=== PATIENT | female | born 1945 | race Caucasian/White ===

== ENCOUNTER 2017-08-10 15:51 | Emergency (ER) | payer MEDICARE, SELFPAY ==
[2017-08-10 16:05] VITALS: BP 159/83; PULSE 72; RESP 18; TEMP 36.9; O2SAT 97; BMI 31.3
[2017-08-10 17:02] LABS: Add Manual Diff / Slide Review NO; Basophils Percent Auto 0.5 % (0-2); Eosinophils Percent Auto 1.7 % (2-4); Hematocrit 41.9 % (36-46); Hemoglobin 14.3 g/dL (12.0-16.0); Lymphocytes Percent Auto 17.2 % (25-40); Mean Corpuscular HGB Conc 34.2 % (30-36); Mean Corpuscular Hemoglobin 31.2 PG (26-34); Mean Corpuscular Volume 91.3 fL (80-100); Monocytes Percent Auto 6.6 % (3-14); Neutrophils Absolute Auto 5500 /uL (3000-5900); Platelet Count 226 X10^3/uL (150-400); Red Blood Cell Count 4.59 X10^6/uL (4.0-5.2); Red Cell Distribution Width 13.4 % (11.6-14.8); White Blood Cell Count 7.4 X10^3/uL (4.5-11.0)
[2017-08-10 17:08] LABS: Prothrombin Time 11.1 SECONDS (10.1-12.7)
[2017-08-10 17:10] LABS: PTT Partial Thromboplastin Tim 35 SECONDS (26.4-36.2)
[2017-08-10 17:13] LABS: Alanine Aminotransferase 35 IU/L (9-52); Albumin 4.1 g/dL (3.5-5.0); Albumin Globulin Ratio 1.3 (1.0-2.8); Alkaline Phosphatase 103 U/L (38-126); Aspartate Aminotransferase 32 IU/L (14-36); BUN Creatinine Ratio 18.6 (6-22); Bilirubin Total 0.9 mg/dL (0.2-1.3); Blood Urea Nitrogen 13 mg/dL (7-17); Calcium 9.4 mg/dL (8.4-10.2); Carbon Dioxide 26 mmol/L (22-32); Chloride 101 mmol/L (98-107); Estimated Glomerular Filt Rate > 60.0 mL/min (>60); Globulin 3.1 g/dL (1.7-4.1); Glucose 118 mg/dL (80-110); HEMOLYSIS < 15 (0-50); Lipase 48 U/L (23-300); Potassium 3.8 mmol/L (3.4-5.1); Sodium 138 mmol/L (137-145); Total Protein 7.2 g/dL (6.3-8.2)
[2017-08-10 18:38] LABS: Creatine Kinase 67 U/L (30-135)
[2017-08-10 18:49] LABS: Erythrocyte Sedimentation Rate 5 MM/HR (0-20)
[2017-08-10 18:56] LABS: Free T4, Direct Thyroxine 1.43 ng/dL (0.78-2.19)
[2017-08-10] MEDS: IBUPROFEN 400 MG TABLET 800 MG PO (18:59)
[2017-08-10 19:10] LABS: Thyroid Stimulating Hormone 0.73 uIU/mL (0.47-4.68)
[2017-08-10 19:45] LABS: Bacteria Urine None Seen; RBC Urine None Seen (0-5/HPF)
[2017-08-10 19:46] LABS: Appearance Urine UA CLEAR; Bilirubin Urine UA NEGATIVE (NEGATIVE); Color Urine UA YELLOW; Glucose Urine UA NEGATIVE (Normal); Ketones Urine UA NEGATIVE (NEGATIVE); Leukocyte Esterase Urine UA NEGATIVE (NEGATIVE); Nitrite Urine UA Negative (Negative); Occult Blood Urine UA NEGATIVE (Negative); Protein Urine UA NEGATIVE (Negative); Specific Gravity Urine UA <=1.005 (1.000-1.035); Urobilinogen Urine UA 0.2 E.U./dL (0.2)
[2017-08-10 19:52] LABS: Culture Indicated Urine Cult Not Indicated; Squamous Epithelial Cell Urine 0-1 /HPF; WBC Urine 0-1/HPF (0-5/HPF)
--- NOTE | 2017-08-10 20:02 | ED.EXTPRO ---
HPI - Extremity Problem General Chief complaint: Extremity Problem,Nontraumatic Stated complaint: ACHE EVERYWHERE Time Seen by Provider: 08/10/17 18:06 History of Present Illness HPI Narrative: HPI 71 y/o female with bilateral knee replacements and arthritis presents for evaluation of diffuse musculoskeletal and joint aching that has been present for 1/2 day. Patient reports symptoms feels similar to aching that she feels when a weather system is approaching however they are more severe in nature. Patient denies fevers, chills, dysuria, urinary frequency, cough, rashes or falls. M/S/F/SocHx notable for: please see HPI; remainder reviewed with patient and in chart. ROS: Negative constitutional, eye, cardiovascular, pulmonary, GI, , MSK, skin, neurologic, psychiatric, endocrine unless noted in the HPI. Exam Gen: Pleasant, non-toxic appearing, resting comfortably. HEENT: NC, AT, PEERL, EOMI. Resp: Clear to auscultation bilaterally, normal work of breathing, no accessory muscle usage. Card: Regular rate and rhythm with no murmurs, rubs, or gallops, extremities warm and well perfused. GI: Non-tender to palpation throughout all quadrants, no focal tenderness at McBurney's point, negative Miles's sign, non-distended, no rebound or guarding. : No suprapubic tenderness to palpation. MSK: No visible deformities, strength and tone without visually appreciable deficit. Bilateral knees visually normal without warmth, swelling, tenderness, remainder of appendicular skeleton visually normal without appreciable abnormalities. Skin: Normal color with no visible lesions. Neuro: AO x 3, no facial asymmetry, vision and hearing WNL. Psych: Mood and affect appropriate. Labs / Imaging: WBC 7.4, Hb 14.3, INR 1.0, Na 138, K 3.8, ESR 5, TSH 0.73, free T4 1.43, CK 67 UA - negative leukocyte esterase, negative nitrates, 0-1 squamous epithelial cells, no bacteria. MDM Previous chart, nursing note, labs, imaging, and vitals reviewed. A: 71 y/o female with bilateral knee replacements and arthritis presents for evaluation of diffuse musculoskeletal and joint aching that has been present for 1/2 day. DDx: polymyalgia rheumatica, electrolyte abnormalities, indolent / occult infection, polymyositis, arthritis, hypothyroidism Evaluation: strongly doubt polymyalgia rheumatica given a normal ESR. No significant electrolyte abnormalities. History, exam, and urinalysis without evidence of indolent or occult infection. Doubt polymyositis given a normal CK and otherwise normal laboratory studies. No evidence of hyperthyroidism. Patient given ibuprofen and discharged with PCP follow-up recommended for further evaluation and care. Impression: myalgias (please reference below for remainder of encounter information) Patient was notified of their elevated blood pressure and recommended to follow up with their primary care physician. As the patient is without evidence of acute end organ dysfunction no further emergent evaluation is indicated as per the 2013 [facility] clinical policy. Related Data Home Medications Medication Instructions Recorded Confirmed CA PANTOTHENATE/FOLIC ACID/VIT 1 tab PO QDAY #0 07/14/12 07/12/17 (MULTIVITAMIN) CHOLECALCIFEROL (VITAMIN D3) 1,000 units PO QDAY #0 07/14/12 07/12/17 (VITAMIN D3) Fish Oil 1,000 mg PO QDAY #0 07/14/12 07/12/17 Flaxseed Oil 1,000 mg PO Q DAY #0 07/14/12 07/12/17 Grape Seed Extract (#ACTIVIN) 50 mg PO Q DAY #0 07/14/12 07/12/17 Vitamin E (VITAMIN E) 400 units PO QDAY #0 07/14/12 07/12/17 biotin 5,000 mcg PO QDAY #0 10/25/16 07/12/17 pantoprazole 40 mg tablet,delayed 40 mg PO DAILY 07/12/17 07/12/17 release Previous Rx's Medication Instructions Recorded levothyroxine [Synthroid] 75 mcg PO Q DAY #90 04/10/17 zolpidem 5 mg tablet 5 mg PO HSP PRN #30 tab 07/12/17 Allergies Allergy/AdvReac Type Severity Reaction Status Date / Time shellfish derived Allergy Severe NAUSEA-CLAM Verified 08/10/17 16:10 [SHELLFISH DERIVED] S nickel [NICKEL] Allergy Mild RASH Verified 08/10/17 16:10 sulfamethoxazole Allergy Mild DRY MOUTH Verified 08/10/17 16:10 [SULFAMETHOXAZOLE] trimethoprim [TRIMETHOPRIM] Allergy Mild DRY MOUTH Verified 08/10/17 16:10 PFSH Medical History Rosacea (Chronic 07/17/12) Osteoarthritis (arthritis due to wear and tear of joints) (Chronic 07/17/12) Obstructive sleep apnea syndrome (Chronic 07/17/12) Hyperlipidemia (Chronic 07/28/14) Gastroesophageal reflux disease (Chronic 07/04/16) Class 1 obesity (Chronic 07/04/16) Acquired hypothyroidism (Chronic 07/04/16) Surgical History History of carpal tunnel repair History of carpal tunnel repair History of knee replacement Status post biopsy (10/06/14) Status post thoracotomy Family History Grandfather Heart disease Mother Hypothyroid Social History Smoking Status: Former smoker Exam Initial Vital Signs Initial Vital Signs: Vital Signs Temperature 98.5 F 08/10/17 16:05 Pulse Rate 72 08/10/17 16:05 Respiratory Rate 18 08/10/17 16:05 Blood Pressure 159/83 H 08/10/17 16:05 Pulse Oximetry 97 08/10/17 16:05 Course Orders Ordered: ED Orders 08/10/17 16:51 Complete Blood Count AUTO DIFF Stat Comprehensive Metabolic Panel Stat Creatine Kinase Stat Erythrocyte Sedimentation Rate Stat Free T4 Free Thyroxine Stat Lipase Stat Partial Thromboplastin Time Stat Prothrombin Time INR Stat Thyroid Stimulating Hormone Stat 08/10/17 19:07 Urinalysis and Microscopic Stat Discontinued Medications Ibuprofen (Advil) 800 mg PO NOW ONE Stop: 08/10/17 18:26 Last Admin: 08/10/17 18:59 Dose: 800 mg Vital Signs - 8 hr 08/10/17 16:05 Temperature 98.5 F Pulse Rate 72 Respiratory Rate 18 Blood Pressure 159/83 H Pulse Oximetry 97 MDM - Extremity (Nontraumatic) Lab Data Result diagrams: 08/10/17 16:51 08/10/17 16:51 Lab Results 08/10/17 08/10/17 08/10/17 Range/Units 16:51 16:51 16:51 WBC 7.4 (4.5-11.0) X10^3/uL RBC 4.59 (4.0-5.2) X10^6/uL Hgb 14.3 (12.0-16.0) g/dL Hct 41.9 (36-46) % MCV 91.3 (80-100) fL MCH 31.2 (26-34) PG MCHC 34.2 (30-36) % RDW 13.4 (11.6-14.8) % Plt Count 226 (150-400) X10^3/uL Neut % (Auto) 74.0 (50-75) % Lymph % (Auto) 17.2 L (25-40) % Forrest % (Auto) 6.6 (3-14) % Eos % (Auto) 1.7 L (2-4) % Baso % (Auto) 0.5 (0-2) % Neut # (Auto) 5500 (9311-8779) /uL ESR (0-20) MM/HR PT 11.1 (10.1-12.7) SECONDS INR 1.0 (0.9-1.3) APTT 35 (26.4-36.2) SECONDS Sodium 138 (137-145) mmol/L Potassium 3.8 (3.4-5.1) mmol/L Chloride 101 (98-107) mmol/L Carbon Dioxide 26 (22-32) mmol/L BUN 13 (7-17) mg/dL Creatinine 0.70 (0.52-1.04) mg/dL Estimated GFR > 60.0 (>60) mL/min BUN/Creatinine Ratio 18.6 (6-22) Glucose 118 H (80-110) mg/dL Calcium 9.4 (8.4-10.2) mg/dL Total Bilirubin 0.9 (0.2-1.3) mg/dL AST 32 (14-36) IU/L ALT 35 (9-52) IU/L Alkaline Phosphatase 103 (38-126) U/L Total Creatine Kinase (30-135) U/L Total Protein 7.2 (6.3-8.2) g/dL Albumin 4.1 (3.5-5.0) g/dL Globulin 3.1 (1.7-4.1) g/dL Albumin/Globulin Ratio 1.3 (1.0-2.8) Lipase 48 (23-300) U/L TSH (0.47-4.68) uIU/mL Free T4 (0.78-2.19) ng/dL Urine Color Urine Appearance Urine pH (4.5-8.0) Ur Specific [place] (1.000-1.035) Urine Protein (Negative) Urine Glucose (UA) (Normal) g/dL Urine Ketones (NEGATIVE) Urine Occult Blood (Negative) Urine Nitrate (Negative) Urine Bilirubin (NEGATIVE) Urine Urobilinogen (0.2) E.U./dL Ur Leukocyte Esterase (NEGATIVE) Urine RBC (0-5/HPF) Urine WBC (0-5/HPF) Ur Squamous Epith Cells Urine Bacteria (None) Ur Culture Indicated? Micro UA Comment 08/10/17 08/10/17 08/10/17 Range/Units 16:51 16:51 16:51 WBC (4.5-11.0) X10^3/uL RBC (4.0-5.2) X10^6/uL Hgb (12.0-16.0) g/dL Hct (36-46) % MCV (80-100) fL MCH (26-34) PG MCHC (30-36) % RDW (11.6-14.8) % Plt Count (150-400) X10^3/uL Neut % (Auto) (50-75) % Lymph % (Auto) (25-40) % Forrest % (Auto) (3-14) % Eos % (Auto) (2-4) % Baso % (Auto) (0-2) % Neut # (Auto) (6828-0420) /uL ESR 5 (0-20) MM/HR PT (10.1-12.7) SECONDS INR (0.9-1.3) APTT (26.4-36.2) SECONDS Sodium (137-145) mmol/L Potassium (3.4-5.1) mmol/L Chloride (98-107) mmol/L Carbon Dioxide (22-32) mmol/L BUN (7-17) mg/dL Creatinine (0.52-1.04) mg/dL Estimated GFR (>60) mL/min BUN/Creatinine Ratio (6-22) Glucose (80-110) mg/dL Calcium (8.4-10.2) mg/dL Total Bilirubin (0.2-1.3) mg/dL AST (14-36) IU/L ALT (9-52) IU/L Alkaline Phosphatase (38-126) U/L Total Creatine Kinase 67 (30-135) U/L Total Protein (6.3-8.2) g/dL Albumin (3.5-5.0) g/dL Globulin (1.7-4.1) g/dL Albumin/Globulin Ratio (1.0-2.8) Lipase (23-300) U/L TSH 0.73 (0.47-4.68) uIU/mL Free T4 1.43 (0.78-2.19) ng/dL Urine Color Urine Appearance Urine pH (4.5-8.0) Ur Specific [place] (1.000-1.035) Urine Protein (Negative) Urine Glucose (UA) (Normal) g/dL Urine Ketones (NEGATIVE) Urine Occult Blood (Negative) Urine Nitrate (Negative) Urine Bilirubin (NEGATIVE) Urine Urobilinogen (0.2) E.U./dL Ur Leukocyte Esterase (NEGATIVE) Urine RBC (0-5/HPF) Urine WBC (0-5/HPF) Ur Squamous Epith Cells Urine Bacteria (None) Ur Culture Indicated? Micro UA Comment 08/10/17 Range/Units 19:07 WBC (4.5-11.0) X10^3/uL RBC (4.0-5.2) X10^6/uL Hgb (12.0-16.0) g/dL Hct (36-46) % MCV (80-100) fL MCH (26-34) PG MCHC (30-36) % RDW (11.6-14.8) % Plt Count (150-400) X10^3/uL Neut % (Auto) (50-75) % Lymph % (Auto) (25-40) % Forrest % (Auto) (3-14) % Eos % (Auto) (2-4) % Baso % (Auto) (0-2) % Neut # (Auto) (8946-2390) /uL ESR (0-20) MM/HR PT (10.1-12.7) SECONDS INR (0.9-1.3) APTT (26.4-36.2) SECONDS Sodium (137-145) mmol/L Potassium (3.4-5.1) mmol/L Chloride (98-107) mmol/L Carbon Dioxide (22-32) mmol/L BUN (7-17) mg/dL Creatinine (0.52-1.04) mg/dL Estimated GFR (>60) mL/min BUN/Creatinine Ratio (6-22) Glucose (80-110) mg/dL Calcium (8.4-10.2) mg/dL Total Bilirubin (0.2-1.3) mg/dL AST (14-36) IU/L ALT (9-52) IU/L Alkaline Phosphatase (38-126) U/L Total Creatine Kinase (30-135) U/L Total Protein (6.3-8.2) g/dL Albumin (3.5-5.0) g/dL Globulin (1.7-4.1) g/dL Albumin/Globulin Ratio (1.0-2.8) Lipase (23-300) U/L TSH (0.47-4.68) uIU/mL Free T4 (0.78-2.19) ng/dL Urine Color Yellow Urine Appearance Clear Urine pH 7.0 (4.5-8.0) Ur Specific [place] <=1.005 (1.000-1.035) Urine Protein Negative (Negative) Urine Glucose (UA) Negative (Normal) g/dL Urine Ketones Negative (NEGATIVE) Urine Occult Blood Negative (Negative) Urine Nitrate Negative (Negative) Urine Bilirubin Negative (NEGATIVE) Urine Urobilinogen 0.2 (0.2) E.U./dL Ur Leukocyte Esterase Negative (NEGATIVE) Urine RBC None seen (0-5/HPF) Urine WBC 0-1/hpf (0-5/HPF) Ur Squamous Epith Cells 0-1 /hpf Urine Bacteria None seen (None) Ur Culture Indicated? Cult not indicated Micro UA Comment Not Reportable Discharge Plan Departure Prescriptions: No Action CA PANTOTHENATE/FOLIC ACID/VIT (MULTIVITAMIN) 1 tab PO QDAY Qty: 0 RF: 0 Fish Oil 1,000 mg PO QDAY Qty: 0 RF: 0 CHOLECALCIFEROL (VITAMIN D3) (VITAMIN D3) 1,000 units PO QDAY Qty: 0 RF: 0 Flaxseed Oil 1,000 mg PO Q DAY Qty: 0 RF: 0 Grape Seed Extract (#ACTIVIN) 50 mg PO Q DAY Qty: 0 RF: 0 Vitamin E (VITAMIN E) 400 units PO QDAY Qty: 0 RF: 0 biotin 2,500 MCG capsule 5,000 mcg PO QDAY Qty: 0 RF: 0 levothyroxine [Synthroid] 75 MCG tablet 75 mcg PO Q DAY Qty: 90 RF: 3 zolpidem 5 mg tablet 5 mg PO HSP PRN (Reason: insomnia) Qty: 30 RF: 3 pantoprazole 40 mg tablet,delayed release (DR/EC) 40 mg PO DAILY RF: 0
[2017-08-10 20:13] VITALS: BP 149/79; PULSE 69; TEMP 36.2; O2SAT 100
== END 2017-08-10 20:36 | disposition home or self-care (01) ==
PROVIDERS: Nurse Practitioner Family; Emergency Provider Emergency Medicine; Family Provider Family Medicine; PCP Family Medicine
DX: M79.1 Myalgia (principal)
CPT/HCPCS: 80053; 81001; 82550; 83690; 84439; 84443; 85025; 85610; 85651; 85730; 99282; 99283

== ENCOUNTER → 2017-08-15 13:07 | Outpatient (CLI) | payer MEDICARE, SELFPAY | PROVIDERS: Family Provider Family Medicine; PCP Family Medicine; Visit Provider Family Medicine | DX: M85.852 Other specified disorders of bone density and structure, left thigh (principal); Z78.0 Asymptomatic menopausal state; Z82.62 Family history of osteoporosis | CPT/HCPCS: 77080 ==

== ENCOUNTER → 2017-10-23 10:12 | Outpatient (CLI) | payer MEDICARE, SELFPAY ==
--- NOTE | 2017-10-23 10:16 | DI.MG.S_ITS ---
BILATERAL DIGITAL SCREENING MAMMOGRAM 3D/2D WITH CAD: 10/23/2017 CLINICAL: Routine screening. Comparison is made to exams dated: 10/08/2016 mammogram, 10/07/2015 mammogram, and 10/05/2014 mammogram - [facility]. There are scattered fibroglandular elements in both breasts. Current study was also evaluated with a Computer Aided Detection (CAD) system. No significant masses, calcifications, or other findings are seen in either breast. There has been no significant interval change. IMPRESSION: NEGATIVE There is no mammographic evidence of malignancy. A 1 year screening mammogram is recommended. This exam was interpreted at Station ID: [id number]. NOTE: For mammograms, a report in lay terms will be sent to the patient. Approximately 15% of breast malignancies will not be visualized mammographically. In the management of a palpable breast mass, a negative mammogram must not discourage biopsy of a clinically suspicious lesion. Electronically Signed By: Severo [email or web address]/nahomy:10/23/2017 21:44:46 letter sent: Normal Exam ACR BI-RADS Category 1: Negative 3341F
== END ==
PROVIDERS: Family Provider Family Medicine; PCP Family Medicine; Visit Provider Family Medicine
DX: Z12.31 Encounter for screening mammogram for malignant neoplasm of breast (principal)
CPT/HCPCS: 77063; 77067

== ENCOUNTER → 2017-12-03 08:14 | Outpatient (CLI) | payer MEDICARE, SELFPAY ==
[2017-12-03 10:38] LABS: Thyroid Stimulating Hormone 1.84 uIU/mL (0.47-4.68)
[2017-12-03 19:47] LABS: Free T3, Triiodothyronine Free 3.48 pg/mL (2.77-5.27); Free T4, Direct Thyroxine 1.75 ng/dL (0.78-2.19)
== END ==
PROVIDERS: PCP Family Medicine; Visit Provider Family Medicine
DX: E03.9 Hypothyroidism, unspecified (principal)
CPT/HCPCS: 36415; 84439; 84443; 84481

== ENCOUNTER → 2018-07-11 08:06 | Outpatient (CLI) | payer MEDICARE, SELFPAY ==
[2018-07-11 08:59] LABS: Add Manual Diff / Slide Review NO; Basophils Absolute Auto 0 /uL (0-100); Basophils Percent Auto 0.7 % (0-2); Eosinophils Absolute Auto 200 /uL (0-450); Eosinophils Percent Auto 4.1 % (2-4); Hematocrit 40.8 % (36-46); Hemoglobin 13.9 g/dL (12.0-16.0); Lymphocytes Absolute Auto 1700 /uL (1100-4500); Lymphocytes Percent Auto 31.6 % (25-40); Mean Corpuscular HGB Conc 34.1 % (30-36); Mean Corpuscular Hemoglobin 31.1 PG (26-34); Mean Corpuscular Volume 91.2 fL (80-100); Monocytes Absolute Auto 500 /uL (0-900); Monocytes Percent Auto 8.5 % (3-14); Neutrophils Absolute Auto 2900 /uL (1500-7000); Neutrophils Percent Auto 55.1 % (50-75); Platelet Count 248 X10^3/uL (150-400); Red Blood Cell Count 4.47 X10^6/uL (4.0-5.2); Red Cell Distribution Width 13.4 % (11.6-14.8); White Blood Cell Count 5.3 X10^3/uL (4.5-11.0)
[2018-07-11 09:38] LABS: Alanine Aminotransferase 21 IU/L (9-52); Albumin 3.9 g/dL (3.5-5.0); Albumin Globulin Ratio 1.4 (1.0-2.8); Alkaline Phosphatase 102 U/L (38-126); Aspartate Aminotransferase 27 IU/L (14-36); BUN Creatinine Ratio 21.3 (6-22); Bilirubin Total 0.7 mg/dL (0.2-1.3); Blood Urea Nitrogen 17 mg/dL (7-17); Calcium 9.7 mg/dL (8.4-10.2); Carbon Dioxide 25 mmol/L (22-32); Chloride 102 mmol/L (98-107); Cholesterol 239 mg/dL (140-199); Estimated Glomerular Filt Rate > 60.0 mL/min (>60); Globulin 2.7 g/dL (1.7-4.1); Glucose 113 mg/dL (80-110); HDL Cholesterol 36 mg/dL (40-60); HEMOLYSIS < 15 (0-50); LDL Cholesterol Calculated 166 mg/dL (<100); Potassium 4.4 mmol/L (3.4-5.1); Sodium 136 mmol/L (137-145); Total Protein 6.6 g/dL (6.3-8.2); Triglycerides 185 mg/dL (35-150)
[2018-07-11 09:54] LABS: Free T4, Direct Thyroxine 1.47 ng/dL (0.78-2.19)
== END ==
PROVIDERS: PCP Family Medicine; Visit Provider Family Medicine
DX: E03.9 Hypothyroidism, unspecified (principal); E66.9 Obesity, unspecified; E78.5 Hyperlipidemia, unspecified; Z00.00 Encounter for general adult medical examination without abnormal findings
CPT/HCPCS: 36415; 80053; 80061; 84439; 85025

== ENCOUNTER → 2018-10-24 10:57 | Outpatient (CLI) | payer MEDICARE, SELFPAY ==
--- NOTE | 2018-10-24 | DI.MG.S_ITS ---
BILATERAL DIGITAL SCREENING MAMMOGRAM 3D/2D WITH CAD: 10/24/2018 CLINICAL: Routine screening. Comparison is made to exams dated: 10/23/2017 mammogram, 10/08/2016 mammogram, 10/07/2015 mammogram, 10/05/2014 mammogram, and 08/20/2013 mammogram - [facility]. There are scattered fibroglandular elements in both breasts. Current study was also evaluated with a Computer Aided Detection (CAD) system. No significant masses, calcifications, or other findings are seen in either breast. There has been no significant interval change. IMPRESSION: NEGATIVE There is no mammographic evidence of malignancy. A 1 year screening mammogram is recommended. This exam was interpreted at Station ID: [id number]. NOTE: For mammograms, a report in lay terms will be sent to the patient. Approximately 15% of breast malignancies will not be visualized mammographically. In the management of a palpable breast mass, a negative mammogram must not discourage biopsy of a clinically suspicious lesion. Electronically Signed By: Tommy [email or web address]/nahomy:10/24/2018 12:31:01 letter sent: Normal Exam ACR BI-RADS Category 1: Negative 3341F
== END ==
PROVIDERS: PCP Family Medicine; Visit Provider Family Medicine
DX: Z12.31 Encounter for screening mammogram for malignant neoplasm of breast (principal)
CPT/HCPCS: 77063; 77067

== ENCOUNTER → 2019-08-27 08:04 | Outpatient (CLI) | payer MEDICARE, SELFPAY ==
[2019-08-27 09:59] LABS: Alanine Aminotransferase 22 IU/L (<35); Albumin Globulin Ratio 1.4 (1.0-2.8); Alkaline Phosphatase 97 U/L (38-126); Aspartate Aminotransferase 35 IU/L (14-36); BUN Creatinine Ratio 19.4 (6-22); Bilirubin Total 0.6 mg/dL (0.2-1.3); Blood Urea Nitrogen 14 mg/dL (7-17); Calcium 9.6 mg/dL (8.4-10.2); Carbon Dioxide 28 mmol/L (22-32); Chloride 104 mmol/L (98-107); Cholesterol 208 mg/dL (140-199); Estimated Glomerular Filt Rate > 60.0 mL/min (>60); Globulin 2.8 g/dL (1.7-4.1); Glucose 112 mg/dL (80-110); HDL Cholesterol 34 mg/dL (40-60); HEMOLYSIS < 15 (0-50); LDL Cholesterol Calculated 139 mg/dL (<100); Sodium 140 mmol/L (137-145); Total Protein 6.8 g/dL (6.3-8.2); Triglycerides 175 mg/dL (35-150)
[2019-08-27 10:41] LABS: TSH w/ Reflex to FT4 2.18 uIU/mL (0.47-4.68)
== END ==
PROVIDERS: PCP Family Medicine; Referring Provider Family Medicine; Visit Provider Family Medicine
DX: E03.9 Hypothyroidism, unspecified (principal); E66.9 Obesity, unspecified; E78.5 Hyperlipidemia, unspecified
CPT/HCPCS: 36415; 80053; 80061; 84443

== ENCOUNTER → 2019-09-01 09:40 | Outpatient (CLI) | payer MEDICARE, SELFPAY ==
[2019-09-01 10:49] LABS: BUN Creatinine Ratio 21.8 (6-22); Blood Urea Nitrogen 17 mg/dL (7-17); Carbon Dioxide 30 mmol/L (22-32); Chloride 104 mmol/L (98-107); Estimated Glomerular Filt Rate > 60.0 mL/min (>60); Glucose 101 mg/dL (80-110); HEMOLYSIS < 15 (0-50); Potassium 4.3 mmol/L (3.4-5.1); Sodium 138 mmol/L (137-145)
[2019-09-02 06:36] LABS: Thyroid Peroxidase Antibodies 49 IU/mL (0-34)
[2019-09-02 20:07] LABS: Anti Thyroglobulin Antibody <1.0 IU/mL (0.0-0.9)
== END ==
PROVIDERS: PCP Family Medicine; Referring Provider Family Medicine; Visit Provider Family Medicine
DX: E03.9 Hypothyroidism, unspecified (principal); E66.9 Obesity, unspecified; R73.01 Impaired fasting glucose
CPT/HCPCS: 36415; 80048; 86376; 86800

== ENCOUNTER 2019-09-06 21:26 | Emergency (ER) | payer MEDICARE, SELFPAY ==
[2019-09-06] VITALS (10 sets, daily range): BP systolic 156–190; BP diastolic 76–98; PULSE 56–72; RESP 13–27; O2SAT 91–99
--- NOTE | 2019-09-06 21:37 | DI.RAD.S_ITS ---
PROCEDURE: XR WRIST LT 2V INDICATIONS: fall TECHNIQUE: 2 views of the wrist were acquired. COMPARISON: [facility], , WRIST MINIMUM 3 VIEWS RIGHT, 07/22/2013, 10:25. FINDINGS: Bones: There is a comminuted, intra-articular and mildly displaced fracture of the distal radius. Positive ulnar variance is present. Severe 1st [facility] degenerative narrowing. Scaphoid view: Not obtained. Soft tissues: No suspicious soft tissue calcifications. IMPRESSION: Comminuted, intra-articular displaced fracture of the distal radius. Dictated by: Blanca Jimenez M.D. on 09/06/2019 at 22:12 Approved by: Blanca Jimenez M.D. on 09/06/2019 at 22:12
--- NOTE | 2019-09-06 21:55 | ED_ITS ---
HPI - General Adult General Chief complaint: Extremity Injury, Upper Stated complaint: fall, states left arm is fractured Time Seen by Provider: 09/06/19 21:29 Source: patient and family Mode of arrival: Ambulatory Limitations: no limitations History of Present Illness HPI narrative: 74-year-old female here for evaluation of a left wrist injury. Patient states that she was standing on a child stable in her backyard talking with her neighbor through the friends when she slipped off the table and landed on her left wrist. Has an obvious deformity to her left wrist. She reports no other injury from the fall. Did not hit her head. No loss of consciousness. Patient is not on anticoagulation. No interventions prior to arrival Related Data Home Medications Medication Instructions Recorded Confirmed CA PANTOTHENATE/FOLIC ACID/VIT 1 tab PO QDAY #0 07/14/12 08/28/19 (MULTIVITAMIN) CHOLECALCIFEROL (VITAMIN D3) 1,000 units PO QDAY #0 07/14/12 08/28/19 (VITAMIN D3) Fish Oil 1,000 mg PO QDAY #0 07/14/12 08/28/19 Flaxseed Oil 1,000 mg PO Q DAY #0 07/14/12 08/28/19 Grape Seed Extract (#ACTIVIN) 50 mg PO Q DAY #0 07/14/12 08/28/19 Vitamin E (VITAMIN E) 400 units PO QDAY #0 07/14/12 08/28/19 biotin 5,000 mcg PO QDAY #0 10/25/16 08/28/19 pantoprazole 40 mg tablet,delayed 40 mg PO DAILY 07/12/17 08/28/19 release Previous Rx's Medication Instructions Recorded levothyroxine 75 mcg tablet 75 mcg PO Q DAY #90 tab 04/10/19 zolpidem 5 mg tablet 5 mg PO HSP PRN #30 tab 06/15/19 hydrocodone-acetaminophen [[place]] 1 tab PO Q4-6H PRN #14 tab 09/06/19 Allergies Allergy/AdvReac Type Severity Reaction Status Date / Time shellfish derived Allergy Severe NAUSEA-CLAM Verified 09/07/19 00:03 [SHELLFISH DERIVED] S nitrofurantoin Allergy Intermediate Hives Verified 09/07/19 00:03 [From Macrobid] nickel [NICKEL] Allergy Mild RASH Verified 09/07/19 00:03 sulfamethoxazole Allergy Mild DRY MOUTH Verified 09/07/19 00:03 [SULFAMETHOXAZOLE] trimethoprim [TRIMETHOPRIM] Allergy Mild DRY MOUTH Verified 09/07/19 00:03 Review of Systems Constitutional Constitutional: Denies fever(s), Denies frequent falls and Denies headache(s) ENT Ears, Nose, Mouth, and Throat: Denies dizziness and Denies headache(s) Cardiovascular Cardiovascular: Denies chest pain and Denies dyspnea Respiratory Respiratory: Denies dyspnea Gastrointestinal Gastrointestinal: Denies abdominal pain Genitourinary Genitourinary: Denies dysuria Genitourinary: Denies dysuria Musculoskeletal Musculoskeletal: Denies tingling Comments: Left wrist pain and deformity Integumentary/Breasts Skin/Breast: Denies lesions and Denies rash Neurologic Neurologic: Denies burning sensations, Denies confusion, Denies dizziness, Denies frequent falls, Denies headache(s) and Denies tingling Psychiatric Psychiatric: Denies confusion Hematologic/Lymphatic Hematologic/Lymphatic: Denies easy bleeding and Denies easy bruising Allergic/Immunologic Allergic/Immunologic: Denies urticaria Patient History Medical History Abnormal CXR (chest x-ray) (Resolved 2004) Acquired hypothyroidism (Chronic 07/04/16) Class 1 obesity (Chronic 07/04/16) CTS (carpal tunnel syndrome) (Resolved 1989) Gastroesophageal reflux disease (Chronic 07/04/16) Hyperlipidemia (Chronic 07/28/14) LRTI (lower respiratory tract infection) (Resolved 2001) Obstructive sleep apnea syndrome (Chronic 07/17/12) Osteoarthritis (arthritis due to wear and tear of joints) (Chronic 07/17/12) Osteopenia (Chronic) Rosacea (Chronic 1989) [facility] fever (Resolved) Surgical History (Updated 09/06/17 @ 08:32 by Delicia Vera) Anesthesia (Resolved) History of carpal tunnel repair (Resolved 1989) History of carpal tunnel repair (Resolved 1990) History of knee replacement (Resolved 2004) History of left ankle joint replacement (Resolved 2011) History of surgery (Resolved 1984) S/P skin biopsy (Resolved 10/06/14) Status post thoracotomy (Resolved) Family History (Updated 09/06/17 @ 08:34 by Delicia Vera) Grandfather Heart disease Mother Hypothyroid Father Heart disease Grandmother No problems noted. Mother Bile duct cancer Hypothyroid Grandmother No problems noted. Social History Smoking Status: Former smoker Smoking Status: Former smoker Substance Use Type: does not use Exam Initial Vital Signs Initial Vital Signs: Vital Signs Pulse Rate 72 09/06/19 21:34 Respiratory Rate 24 09/06/19 21:34 Blood Pressure 178/98 H 09/06/19 21:34 Pulse Oximetry 96 09/06/19 21:34 Const General: cooperative, well developed and well groomed Limitations: mental status not altered HENMT Head: normal to inspection and normocephalic Chest Chest: No tenderness Resp Effort & Inspection: normal respiratory effort Auscultation: clear to auscultation bilaterally Cardio Rate: regular rate Rhythm: regular rhythm Pulses: radial pulses present on the left GI Inspection: non-distended Palpation: soft Back/Spine/Pelvis Cervical Spine: No cervical spinal tenderness Skin Other: Patient with a small superficial abrasion to the ulnar aspect of the left wrist volar just proximal to the wrist joint. Neuro Sensory Exam: no sensory deficits noted Extrem General: capillary refill normal Other: Obvious deformity to the left wrist. Left elbow is unremarkable. Left shoulder is unremarkable. No other orthopedic injuries found Psych Appearance: grossly normal and well kempt Procedures Orthopedic Fracture Reduction Fracture #1: Time Out Performed: Yes Side: left Fracture Reduction Location: radius Analgesia: procedural sedation Technique: direct manipulation Post Reduction X-rays Demonstrate: acceptable reduction Post-reduction neuro exam: intact Post-reduction vascular exam: intact Splint Applied: Yes Patient Tolerated Procedure: Well Orthopedic Splinting/Casting Injury #1: Side: left Upper Extremity Injury Location: wrist Upper Extremity Immobilizer: sugar tong splint Post splinting neuro exam: intact Post splinting vascular exam: intact Placed by: Provider Procedural Sedation Consent signed: Yes Time out performed: Yes Indication: fracture/dislocation reduction ASA Class: II Mallampati Airway Classification: Class I Preparation: fitter hand applied, pulse oximeter, capnometry used and supplemental O2 applied IV Propofol dose (mg): 100 ED Sedation Level: Minimal Patient Tolerated Procedure: Well and No complications Complications: none Scores GCS Kaycee coma scale eye opening: Spontaneous [place] coma scale verbal response: Orientated [place] coma scale motor response: Obey commands [place] coma scale total score: 15 Course Orders Ordered: ED Orders 09/06/19 21:37 XR wrist LT 2V Stat 09/06/19 23:00 XR wrist LT 2V Stat Discontinued Medications Hydrocodone Bitart/Acetaminophen (Vicodin 5/325 Prepack) 1 bottle MISC SEEINSTR ONE Stop: 09/06/19 23:30 Last Admin: 09/06/19 23:38 Dose: 1 bottle Documented by: JUDITH Hydrocodone Bitart/Acetaminophen ([place] 5/325) 1 tab PO NOW ONE Stop: 09/06/19 23:30 Last Admin: 09/06/19 23:38 Dose: 1 tab Documented by: JUDITH Hydromorphone HCl (Dilaudid) 1 mg IV NOW ONE Stop: 09/06/19 21:59 Last Admin: 09/06/19 22:04 Dose: 1 mg Documented by: JUDITH Sodium Chloride (Normal Saline 0.9%) 1,000 mls @ 125 mls/hr IV CONT [place] Last Infusion: 09/07/19 00:02 Dose: 0 mls/hr Documented by: Infusion: 09/06/19 23:27 Dose: 0 mls/hr Documented by: Admin: 09/06/19 22:45 Dose: 125 mls/hr Documented by: JUDITH Propofol (Diprivan) 100 mg IV NOW ONE Stop: 09/06/19 21:59 Last Admin: 09/06/19 22:47 Dose: 100 mg Documented by: JUDITH Vital Signs Vital signs: Vital Signs - 8 hr 09/06/19 21:34 09/06/19 22:30 09/06/19 22:45 Pulse Rate 72 56 L 58 L Respiratory Rate 24 18 16 Blood Pressure 178/98 H 178/88 H 190/97 H Pulse Oximetry 96 97 97 09/06/19 22:50 09/06/19 22:55 09/06/19 23:00 Pulse Rate 60 69 61 Respiratory Rate 27 H 26 H 19 Blood Pressure 156/76 H 182/76 H 168/81 H Pulse Oximetry 91 97 98 09/06/19 23:05 09/06/19 23:10 09/06/19 23:15 Pulse Rate 60 58 L 56 L Respiratory Rate 27 H 22 13 Blood Pressure 182/91 H 181/88 H 186/88 H Pulse Oximetry 97 97 98 09/06/19 23:56 Pulse Rate 60 Respiratory Rate 16 Blood Pressure 170/88 H Pulse Oximetry 99 Medical Decision Making Lab Data Labs: Point of Care Testing Test Results Not applicable Point of care testing: Point of Care Testing Test Results Not applicable Imaging Data Extremity x-ray #1: Radiologist's Impression: [address] [address] XRay Report Signed Patient: Pooja Roe LMR#: [id number] : 7Acct:[id number] Age/Sex: 74 / FDate of Service: 09/06/19 Loc: ED Accession Number: [id number] Procedure: XR wrist LT 2V Ordering Provider: Alin Lopez D.O. PROCEDURE: XR WRIST LT 2V INDICATIONS: fall TECHNIQUE: 2 views of the wrist were acquired. COMPARISON: [facility], , WRIST MINIMUM 3 VIEWS RIGHT, 07/22/2013, 10:25. FINDINGS: Bones: There is a comminuted, intra-articular and mildly displaced fracture of the distal radius. Positive ulnar variance is present. Severe 1st [facility]MC degenerative narrowing. Scaphoid view: Not obtained. Soft tissues: No suspicious soft tissue calcifications. IMPRESSION: Comminuted, intra-articular displaced fracture of the distal radius. Dictated by: Blanca Jimenez M.D. on 09/06/2019 at 22:12 Approved by: Blanca Jimenez M.D. on 09/06/2019 at 22:12 Postreduction x-ray: Attestation: I personally reviewed and interpreted this imaging study as follows: My Impression: Only somewhat better alignment of the fracture however is out to length. MDM Narrative Medical decision making narrative: This did appear to be a mechanical fall. Only injury reported from the patient and found on the exam is of the left wrist. Was a comminuted angulated intra-articular distal radius fracture. Patient was sedated and the fracture reduction was attempted as described above. I did discuss the case with Dr. Harvey with Orthopedics who evaluated the x- rays in the post reduction x-ray who stated that it was in appropriate alignment for the patient to be discharged and followed up in clinic. Patient was given information for follow-up. She was given return precautions and follow-up instructions care instructions. She expressed understanding and agreement. Discharge Plan Departure Patient Disposition: Home Clinical Impression: Distal radius fracture, left Qualifiers: Encounter type: initial encounter Fracture type: closed Fracture morphology: other intra-articular Qualified Code(s): S52.572A - Other intraarticular fracture of lower end of left radius, initial encounter for closed fracture Discharge Date/Time: 09/06/19 23:57 Instructions: How to Use a Sling, DI for Wrist Fracture, How to Take Care of Your Splint Activity Restrictions/Additional Instructions: The splint needs to stay on in stay clean and stay dry. Treat it like a cast. Tomorrow contact the [facility] group at [phone]. I discussed your case tonight with Dr. Harvey. Take the pain medication as d irected. Contact your primary provider for follow-up. Return to the emergency department for any new or worsening symptoms Prescriptions: New hydrocodone-acetaminophen [[place]] 5-325 mg tablet 1 tab PO Q4-6H PRN (Reason: pain) Qty: 14 RF: 0 No Action CA PANTOTHENATE/FOLIC ACID/VIT (MULTIVITAMIN) 1 tab PO QDAY Qty: 0 RF: 0 Fish Oil 1,000 mg PO QDAY Qty: 0 RF: 0 CHOLECALCIFEROL (VITAMIN D3) (VITAMIN D3) 1,000 units PO QDAY Qty: 0 RF: 0 Flaxseed Oil 1,000 mg PO Q DAY Qty: 0 RF: 0 Grape Seed Extract (#ACTIVIN) 50 mg PO Q DAY Qty: 0 RF: 0 Vitamin E (VITAMIN E) 400 units PO QDAY Qty: 0 RF: 0 biotin 2,500 MCG capsule 5,000 mcg PO QDAY Qty: 0 RF: 0 levothyroxine [Synthroid] 75 mcg tablet 75 mcg PO Q DAY Qty: 90 RF: 3 zolpidem 5 mg tablet 5 mg PO HSP PRN (Reason: insomnia) Qty: 30 RF: 3 pantoprazole 40 mg tablet,delayed release (DR/EC) 40 mg PO DAILY RF: 0 Referrals: Audelia Abraham DO [Primary Care Provider] -
[2019-09-06] MEDS: HYDROMORPHONE 1 MG INJ IV (22:04)
[2019-09-06] MEDS: SODIUM CHLORIDE 0.9% 1,000 ML 125 ML IV (22:45)
[2019-09-06] MEDS: propofoL 200 MG/20 ML VIAL 100 MG IV (22:47)
--- NOTE | 2019-09-06 23:00 | DI.RAD.S_ITS ---
PROCEDURE: XR WRIST LT 2V INDICATIONS: post reduction TECHNIQUE: 2 views of the wrist were acquired. COMPARISON: [facility], CR, XR WRIST LT 2V, 09/06/2019, 21:38. FINDINGS: Bones: Comminuted fracture of the distal radius is noted. Fracture lucencies extend into the radiocarpal and distal radioulnar joints. The trapezium is absent likely secondary to prior surgical resection. Soft tissues: No suspicious soft tissue calcifications. IMPRESSION: Comminuted, intra-articular distal radius fracture. Dictated by: Sandra Paz MD, PhD on 09/07/2019 at 8:36 Approved by: Sandra Paz MD, PhD on 09/07/2019 at 8:37
--- NOTE | 2019-09-06 23:26 | RT ---
09/06/2019 2217 Assisted and present for conscious sedation for a 74YOF for re-positioning and splinting disloctation/fracture of left forearm. VSS and patient awoke without complications or sequellae from the sedation. Dr. Lopez present. RT time 60 minutes. Alen Whittaker, JUDO INSTRUCTOR
[2019-09-06] MEDS: HYDROCODONE/ACET 5/325 PREPACK 1 BOTTLE MISC (23:38)
[2019-09-06] MEDS: HYDROCODONE/ACET 5/325 TABLET 1 TAB PO (23:38)
== END 2019-09-06 23:57 | disposition home or self-care (01) ==
PROVIDERS: Emergency Provider Emergency Medicine; PCP Family Medicine
DX: S52.572A Other intraarticular fracture of lower end of left radius, initial encounter for closed fracture (principal); W19.XXXA Unspecified fall, initial encounter
CPT/HCPCS: 25605; 29125; 36415; 73100; 94770; 96361; 96374; 99152; 99285; J1170; J2704

== ENCOUNTER → 2019-09-09 12:01 | Outpatient (CLI) | payer MEDICARE, SELFPAY ==
--- NOTE | 2019-09-09 | DI.CT.S_ITS ---
PROCEDURE: CT UE LT WO CON INDICATIONS: Fracture of unspecified carpal bone, left wrist, i TECHNIQUE: Noncontrast 3 mm axial sections acquired of the Left wrist , with coronal and sagittal reformats. COMPARISON: [facility], CR, XR WRIST LT 2V, 09/06/2019, 22:51. FINDINGS: Image quality: Excellent. Bones: again noted is an acute comminuted and impacted distal radial fracture with fracture line extending to radiocarpal joint space. There is dorsal and lateral displacement of the distal radial fragments without 2 9 mm overlapping of fracture side and up to 4 mm lateral displacement. There is also up to 4 mm depression at the distal radial articulating surface. No other fracture is seen. No suspicious intraosseous lesion. Moderate Osteoarthritic changes throughout the wrist joints are seen. There is prior trapezial resection. Soft tissues: There is small amount of radiocarpal joint effusion. Soft tissue swelling around wrist joint fracture site is seen. No gross full-thickness wrist tendon rupture. No discrete soft tissue mass or fluid collection. IMPRESSION: 1. Acute comminuted, impacted and slightly displaced fracture involving distal radius extending to radiocarpal joint as above. 2. Prior trapezial resection. No other fracture or dislocation. Moderate wrist joint osteoarthritis. 3. wrist soft tissue swelling around the fracture site. Small joint effusion. Dictated by: Christos Guido M.D. on 09/09/2019 at 13:40 Approved by: Christos Guido M.D. on 09/09/2019 at 13:57
== END ==
PROVIDERS: PCP Family Medicine; Referring Provider Orthopaedic Surgery; Visit Provider Orthopaedic Surgery
DX: S52.592A Other fractures of lower end of left radius, initial encounter for closed fracture (principal); X58.XXXA Exposure to other specified factors, initial encounter; M19.032 Primary osteoarthritis, left wrist; M25.432 Effusion, left wrist
CPT/HCPCS: 73200

== ENCOUNTER → 2019-09-14 09:16 | Outpatient (CLI) | payer MEDICARE, SELFPAY ==
[2019-09-16 06:56] LABS: COVID19 Sendout Not Detected (Not Detect)
== END ==
PROVIDERS: PCP Family Medicine; Visit Provider Nurse Practitioner
DX: Z01.812 Encounter for preprocedural laboratory examination (principal)
CPT/HCPCS: 87635

== ENCOUNTER 2019-09-17 10:03 | Day surgery (SDC) | payer MEDICARE, SELFPAY ==
[2019-09-11 10:39] VITALS: BMI 33.4
[2019-09-17] VITALS (7 sets, daily range): BP systolic 136–167; BP diastolic 70–95; PULSE 64–82; RESP 10–17; TEMP 36–36.7; O2SAT 95–100; BMI 32.6
[2019-09-17] MEDS: LACTATED RINGERS 1,000 ML 42 ML IV ×2 (11:20→13:24)
[2019-09-17 11:29] LABS: Carbon Dioxide 26 mmol/L (22-32); Chloride 105 mmol/L (98-107); HEMOLYSIS 32 (0-50); Sodium 137 mmol/L (137-145)
--- NOTE | 2019-09-17 12:07 | SUR.OPER ---
Supine on padded OR bed, head on pillow, nonoperative arm secured on padded arm board at <90 degrees abduction, operative arm on hand table, legs uncrossed, safety belt at thigh, tape over blanket over lower legs.
[2019-09-17] MEDS: CEFAZOLIN 2 GM/100 ML FROZ.PIGGY IV (12:15)
--- NOTE | 2019-09-17 12:17 | SUR.PREOP ---
Block start time [1201] . Monitoring initiated and maintained throughout procedure. Medications given by anesthesiologist. Patient remained stable throughout procedure, no adverse reactions noted. Block end time [1208].
[2019-09-17] MEDS: BUPIVACAINE 0.25% W/ EPI 30 ML VIAL INJ (12:41)
--- NOTE | 2019-09-17 13:24 | PM.PROC.1 ---
Procedures Date/Time Date of procedure: 09/17/19 Time of procedure: 12:00 General Procedure description: Ultrasound guided supraclavicular brachial plexus nerve block for post op pain control after left distal radius ORIF by Dr. Thompson. Risk and benefits of procedure discussed with patient. ASA monitoring applied to patient. 2 mg Versed and 50 mcg fentanyl given for procedural sedation. Skin site was prepped with chlorhexidine and allowed to fully dry. Sterile gloves, mask, hat and probe cover were used to maintain sterility. 2% lidocaine and 30ga needle was used to make a small skin wheal at needle insertion site. Under ultrasound guidance, a 21ga 50mm Pajunk needle was directed to the brachial plexus near the subclavian artery and first rib. Patient reported no parasthesias. After negative aspiration, 20 mL 0.5% ropivicaine and 10mg dexamethasone were injected around brachial plexus. Patient tolerated procedure well.
--- NOTE | 2019-09-17 13:42 | PM.OP.1 ---
Operative Date/Time/Diagnoses Date of procedure: 09/17/19 Time of procedure: 12:31 Pre-op diagnosis: Left intra-articular distal radius fracture Post-op diagnosis: same Procedure & Clinicians Procedure: Open reduction internal fixation of a left intra-articular distal radius fracture Same procedure as scheduled: Yes Indications: Displaced, comminuted, intra-articular distal radius fracture Surgeon: Mario Alberto Thompson Click Yes if Unassisted: Yes Anesthesia Type: General and Peripheral nerve block Operative Notes Findings: Distal radius fracture with quite a bit of extra articular comminution with extension proximally. The patient also had extension distally into the articular space with displacement of the articular surface. Closure Type: primary Specimen(s): none sent Applied: implant(s) (Arthrex distal radius plate) Estimated Blood Loss (mL): 10 Blood products transfused: none Tourniquet time (min): 58 Procedure in detail: On date of service, patient was met in the holding area where the operative site was signed and witnessed by the OR staff. The surgery was once again discussed with the patient and any remaining questions or concerns were answered to the patient's full satisfaction. Time-out was performed verifying patient's name procedure and operative site. Patient was taken back to the operating theater and placed on the operating table in a supine position. Great care was taken to ensure that all bony prominences were appropriately padded. Well-padded tourniquet was placed up along the upper extremity. Another time-out was performed verifying patient's name, procedure, and operative site. The upper extremity was then prepped and draped in the normal sterile fashion. Esmarch was used to exsanguinate the limb and the tourniquet was turned up to 250 mm of mercury. Fifteen blade was used to expose the distal radius. An incision was made over the FCR tendons. The FCR tendon was retracted and the floor of the tendon was opened with a 15 blade. The FPL tendon and muscle belly was retracted ulnarly giving us good visualization of the pronator quadratus. The pronator quadratus was excised off the distal radius using the 15 blade and then finished with a periosteal elevator. Next the brachia radialis attachment to the radial styloid was released to help with overall reduction. Retractors were placed allowing us good visualization of the distal radius as well as the shaft. A reduction maneuver was performed and a K-wire was placed holding a provisional reduction of the extra-articular portion of the radius fracture. C-arm was brought in to verify overall reduction. Once we were satisfied with the overall reduction, a plate was placed and held provisionally with K-wires. C-arm was once again used to verify plate positioning as well as reduction. The plate was then fixated to the distal fragment using locking screws. Lateral C-arm views were used to verify that the screws were not intra-articular or broaching the dorsal cortex. We were able to reduce the articular surface and use of the distal screws to hold that reduction. At this point we are able to use the plate to reduce the large distal fragment to the rest of the radial shaft. Making sure we were able to bring the radius back out to length as well as correct the inclination and tilt. Once we were satisfied with the overall reduction the plate was then secured to the shaft with a combination of locking and nonlocking screws. Final x-rays were obtained. The wound was copiously irrigated and closed in a layered fashion. The wrist and hand were cleaned dried dressed. Patient was placed into a splint and taken to the PACU in stable condition. Complications: none Post-operative Condition: stable Disposition: PACU Plan for aftercare: No restrictions to range of motion of the fingers. The splint will be removed next week and at that point to the be no restrictions to range of motion of the wrist. No lifting more than 2-3 lb.
--- NOTE | 2019-09-17 14:26 | SUR.PHASEII ---
Pt observed to have irregular heart rhythm in phase II. Pt asymtomatic at this time. Dr. Truong at bedside and stated pt ok to be discharged home. Dr. Truong reported no change of pt from pre-op rhythm.
== END 2019-09-17 14:28 | disposition home or self-care (01) ==
PROVIDERS: Anesthesiology; PCP Family Medicine; Referring Provider Orthopaedic Surgery; Visit Provider Orthopaedic Surgery
PROC: (CPT 25609; principal; 2019-09-17 11:30)
DX: S52.572A Other intraarticular fracture of lower end of left radius, initial encounter for closed fracture (principal); W19.XXXA Unspecified fall, initial encounter
CPT/HCPCS: 25609; 64415; 80051; J0690; J1100; J2250; J2704; J3010

== ENCOUNTER → 2019-10-29 17:18 | Outpatient (CLI) | payer MEDICARE, SELFPAY ==
--- NOTE | 2019-10-29 17:40 | DI.MG.S_ITS ---
Patient Name: CAIN ZULUAGA date: 1945 Sex: F Attending Physician: Jarad Indications: Date: 10/29/2019 17:28 At the request of: RAMÍREZ BARLOW Procedure: MM screening mammo BI BILATERAL DIGITAL SCREENING MAMMOGRAM 3D/2D WITH CAD: 10/29/2019 CLINICAL: Routine screening. Comparison is made to exams dated: 10/24/2018 mammogram, 10/23/2017 mammogram, and 10/08/2016 mammogram - [facility]. There are scattered fibroglandular elements in both breasts. Current study was also evaluated with a Computer Aided Detection (CAD) system. There is a new 0.6 cm asymmetry in the left breast anterior depth central to the nipple seen on the craniocaudal view only. No other significant masses, calcifications, or other findings are seen in either breast. IMPRESSION: INCOMPLETE: NEEDS ADDITIONAL IMAGING EVALUATION The new 0.6 cm asymmetry in the left breast is indeterminate. Additional views with possible ultrasound are recommended. This exam was interpreted at Station ID: [id number]. NOTE: For mammograms, a report in lay terms will be sent to the patient. Approximately 15% of breast malignancies will not be visualized mammographically. In the management of a palpable breast mass, a negative mammogram must not discourage biopsy of a clinically suspicious lesion. Electronically Signed By: Gregorio jarrell/nahomy:10/29/2019 18:17:44 letter sent: Additional Imaging Needed ACR BI-RADS Category 0: Incomplete 3340F Continued Report - Page 2 of 2 Patient Name: CAIN ZULUAGA date: 1945 Sex: F Attending Physician: Jarad Indications: Date: 10/29/2019 17:28 At the request of: RAMÍREZ BARLOW Procedure: MM screening mammo BI
== END ==
PROVIDERS: PCP Family Medicine; Referring Provider Family Medicine; Visit Provider Family Medicine
DX: Z12.31 Encounter for screening mammogram for malignant neoplasm of breast (principal)
CPT/HCPCS: 77063; 77067

== ENCOUNTER → 2019-11-27 12:31 | Outpatient (CLI) | payer MEDICARE, SELFPAY ==
--- NOTE | 2019-11-27 | DI.MG.S_ITS ---
UNILATERAL LEFT DIGITAL DIAGNOSTIC MAMMOGRAM 3D/2D WITH ADDITIONAL VIEWS: 11/27/2019 CLINICAL: Additional evaluation requested from prior study. Comparison is made to exams dated: 10/29/2019 mammogram, 10/24/2018 mammogram, and 10/23/2017 mammogram - [facility]. There are scattered fibroglandular elements in left breast. There is a 0.6 cm asymmetry in the left breast anterior depth central to the nipple seen on the craniocaudal view only. This is less prominent on spot compression views with tomosynthesis, and is not seen on the ML view. No other significant masses or calcifications are seen in the breast. IMPRESSION: INCOMPLETE: NEEDS ADDITIONAL IMAGING EVALUATION The 0.6 cm asymmetry in the left breast most likely is fibroglandular tissue and is indeterminate. An ultrasound is recommended and has been scheduled to immediately follow this exam. This exam was interpreted at Station ID: [id number]. NOTE: For mammograms, a report in lay terms will be sent to the patient. Approximately 15% of breast malignancies will not be visualized mammographically. In the management of a palpable breast mass, a negative mammogram must not discourage biopsy of a clinically suspicious lesion. Electronically Signed By: Karsten Díaz M.D. jr/:11/27/2019 13:13:39 ACR BI-RADS Category 0: Incomplete 3340F
--- NOTE | 2019-11-27 | DI.US.S_ITS ---
LIMITED ULTRASOUND OF LEFT BREAST: 11/27/2019 CLINICAL: Patient returns today to evaluate a focal asymmetry in the left breast. Comparison is made to exams dated: 11/27/2019 mammogram, 10/29/2019 mammogram, 10/24/2018 mammogram, 10/23/2017 mammogram, 10/08/2016 mammogram, and 10/07/2015 mammogram - [facility]. Color flow and real-time ultrasound of the left breast 11-1 o'clock region were performed. Fleming scale images of the real-time examination were reviewed. No significant abnormalities were seen sonographically in the left breast. IMPRESSION: NEGATIVE There is no sonographic evidence of malignancy. Return to annual mammogram screening schedule is recommended. This exam was interpreted at Station ID: [id number]. Electronically Signed By: Karsten Díaz M.D., jr/nahomy:11/27/2019 14:25:07 letter sent: Normal Exam Ultrasound BI-RADS: 1 Negative
== END ==
PROVIDERS: PCP Family Medicine; Referring Provider Family Medicine; Visit Provider Family Medicine
DX: R92.8 Other abnormal and inconclusive findings on diagnostic imaging of breast (principal)
CPT/HCPCS: 76642; 77065; G0279

== ENCOUNTER → 2020-07-11 13:17 | Outpatient (CLI) | payer MEDICARE, SELFPAY ==
--- NOTE | 2020-07-11 13:19 | DI.RAD.S_ITS ---
PROCEDURE: XR CLAVICLE RT INDICATIONS: lump on the end of the clavicle TECHNIQUE: 2 views of the clavicle were acquired. COMPARISON: None. FINDINGS: Bones: No fractures or dislocations. No suspicious bony lesions. Widening of the acromioclavicular joint concerning for type 1 separation Soft tissues: No suspicious soft tissue calcifications. IMPRESSION: Widening of the acromioclavicular joint concerning for type 1 separation. Otherwise, normal examination. Dictated by: Sandra Paz MD, PhD on 07/11/2020 at 17:26 Approved by: Sandra Paz MD, PhD on 07/11/2020 at 17:27
== END ==
PROVIDERS: PCP Family Medicine; Referring Provider Family Medicine; Visit Provider Family Medicine
DX: M89.8X1 Other specified disorders of bone, shoulder (principal); M19.019 Primary osteoarthritis, unspecified shoulder
CPT/HCPCS: 73000

== ENCOUNTER → 2020-08-16 07:54 | Outpatient (CLI) | payer MEDICARE, SELFPAY ==
[2020-08-16 08:37] LABS: Alanine Aminotransferase 23 IU/L (<35); Albumin 3.9 g/dL (3.5-5.0); Albumin Globulin Ratio 1.4 (1.0-2.8); Alkaline Phosphatase 102 U/L (38-126); Aspartate Aminotransferase 35 IU/L (14-36); Bilirubin Total 0.7 mg/dL (0.2-1.3); Blood Urea Nitrogen 18 mg/dL (7-17); Calcium 9.5 mg/dL (8.4-10.2); Carbon Dioxide 27 mmol/L (22-32); Chloride 104 mmol/L (98-107); Cholesterol 234 mg/dL (140-199); Estimated Glomerular Filt Rate > 60.0 mL/min (>60); Globulin 2.8 g/dL (1.7-4.1); Glucose 135 mg/dL (80-110); HDL Cholesterol 41 mg/dL (40-60); HEMOLYSIS < 15 (0-50); LDL Cholesterol Calculated 162 mg/dL (<100); Potassium 4.6 mmol/L (3.4-5.1); Sodium 138 mmol/L (137-145); Total Protein 6.7 g/dL (6.3-8.2); Triglycerides 157 mg/dL (35-150)
[2020-08-16 09:36] LABS: TSH w/ Reflex to FT4 2.85 uIU/mL (0.47-4.68)
== END ==
PROVIDERS: PCP Family Medicine; Referring Provider Family Medicine; Visit Provider Family Medicine
DX: E03.9 Hypothyroidism, unspecified (principal); E66.9 Obesity, unspecified; E78.2 Mixed hyperlipidemia
CPT/HCPCS: 36415; 80053; 80061; 84443

== ENCOUNTER → 2020-08-17 10:28 | Outpatient (CLI) | payer MEDICARE, SELFPAY ==
--- NOTE | 2020-08-17 10:30 | DI.CT.S_ITS ---
PROCEDURE: CT UE RT W CON INDICATIONS: medial clavicle mass TECHNIQUE: After IV contrast infusion, 1-1.5 mm thick sections acquired from the acromioclavicular joint to the inferior scapula, with coronal and sagittal reformatting. COMPARISON: [facility], CT, CT UE LT WO CON, 09/09/2019, 12:04. [facility], CR, XR CLAVICLE RT, 07/11/2020, 13:19. FINDINGS: Image quality: Excellent. Bones: Anterior surface skin marker is placed over right supraclavicular region just above the level of medial right clavicular head/sternal clavicular joint. There is moderate osteoarthritic changes involving left sternoclavicular joint with joint space narrowing and subchondral sclerosis. Prominent anterior marginal osteophyte formation is seen. No fracture or dislocation. No suspicious intraosseous lesion or area of abnormal intraosseous enhancement. Soft tissues: Chondrocalcinosis involving bilateral sternoclavicular joints are seen more prominent on the right side. No discrete soft tissue mass or fluid collection is identified. Underlying right neck vessels show normal contrast enhancement without aneurysm or high-grade stenosis. No supraclavicular or axillary lymphadenopathy is seen by size criteria. No significant shoulder joint effusion. No evidence of full-thickness rotator cuff tendon rupture. No significant muscle atrophy. Visualized right lung field is clear. IMPRESSION: 1. Asymmetric right worse than left bilateral sternoclavicular joint osteoarthritis and chondrocalcinosis with prominent anterior right sternoclavicular joint marginal osteophyte which may account for clinical finding. No suspicious intraosseous lesion. No discrete soft tissue mass or fluid collection. 2. No supraclavicular or axillary lymphadenopathy by size criteria. No full-thickness rotator cuff tendon rupture. Dictated by: Christos Guido M.D. on 08/17/2020 at 11:42 Approved by: Christos Guido M.D. on 08/17/2020 at 11:55
== END ==
PROVIDERS: PCP Family Medicine; Referring Provider Family Medicine; Visit Provider Family Medicine
DX: R22.31 Localized swelling, mass and lump, right upper limb (principal); M19.011 Primary osteoarthritis, right shoulder; M19.012 Primary osteoarthritis, left shoulder; M11.212 Other chondrocalcinosis, left shoulder; M11.211 Other chondrocalcinosis, right shoulder
CPT/HCPCS: 73201; Q9967

== ENCOUNTER → 2020-09-22 15:56 | Outpatient (CLI) | payer MEDICARE, SELFPAY ==
--- NOTE | 2020-09-22 | DI.CT.S_ITS ---
PROCEDURE: CT LE LT W CON INDICATIONS: primary osteoarthritis TECHNIQUE: Noncontrast 1-1.5 mm axial sections acquired from above the tibiotalar joint to the bottom of the calcaneus, with coronal and sagittal reformats. COMPARISON: [facility] [place], CR, XR ANKLE 3 VIEWS WEIGHT BEARING LEFT, 08/24/2020, 16:33. FINDINGS: Image quality: Excellent. Bones: No acute fracture. Diffuse osteopenia. Scattered degenerative subchondral sclerosis and spurring. There is also prominent subchondral cystic change throughout the midfoot. Postsurgical changes related to tibiotalar arthroplasty. Hardware appears intact. Expected alignment. There is prominent lucency at the bone metal interface of the tibial component, as radiographically visualized , however no more remote comparison studies available. Soft tissues: Diffuse muscle atrophy. Large fluid collection adjacent to the anterior aspect of the distal tibia. This measures 1.1 x 3.9 cm on sagittal image 79/6. IMPRESSION: Status post tibiotalar arthroplasty. Prominent lucencies at the bone metal interface of the tibial component raising possibility of hardware loosening or infection, however technically age indeterminate. Please correlate clinically and if necessary, triple phase bone scan could be performed. Nonspecific large fluid collection adjacent to the anterior cortex of the distal tibia Diffuse hindfoot and midfoot osteoarthritis. Dictated by: Brent Duque M.D. on 09/22/2020 at 17:04 Approved by: Brent Duque M.D. on 09/22/2020 at 17:09
== END ==
PROVIDERS: PCP Family Medicine; Referring Provider Orthopaedic Surgery Foot and Ankle Surgery; Visit Provider Orthopaedic Surgery Foot and Ankle Surgery
DX: M19.072 Primary osteoarthritis, left ankle and foot (principal)
CPT/HCPCS: 73700

== ENCOUNTER → 2020-10-04 19:35 | Outpatient (CLI) | payer MEDICARE, SELFPAY | PROVIDERS: PCP Family Medicine; Referring Provider Nurse Practitioner; Visit Provider Nurse Practitioner | DX: N39.0 Urinary tract infection, site not specified (principal) | CPT/HCPCS: 87077; 87086; 87186 ==

== ENCOUNTER → 2020-10-06 16:48 | Outpatient (CLI) | payer MEDICARE, SELFPAY ==
[2020-10-06 18:31] LABS: Erythrocyte Sedimentation Rate 11 MM/HR (0-20)
== END ==
PROVIDERS: PCP Family Medicine; Referring Provider Family Medicine; Visit Provider Family Medicine
DX: M00.9 Pyogenic arthritis, unspecified (principal)
CPT/HCPCS: 36415; 85651; 86140

== ENCOUNTER → 2020-10-08 15:51 | Outpatient (CLI) | payer MEDICARE, SELFPAY | PROVIDERS: PCP Family Medicine; Visit Provider Physician Assistant | DX: L02.91 Cutaneous abscess, unspecified (principal) | CPT/HCPCS: 87070; 87075; 87077; 87147; 87186; 87205 ==

== ENCOUNTER → 2020-11-28 15:02 | Outpatient (CLI) | payer MEDICARE, SELFPAY ==
--- NOTE | 2020-11-28 | DI.MG.S_ITS ---
BILATERAL DIGITAL SCREENING MAMMOGRAM 3D/2D WITH CAD: 11/28/2020 CLINICAL: Routine screening. Comparison is made to exams dated: 11/27/2019 mammogram, 10/29/2019 mammogram, and 10/24/2018 mammogram - [facility]. There are scattered fibroglandular elements in both breasts. Current study was also evaluated with a Computer Aided Detection (CAD) system. No significant masses, calcifications, or other findings are seen in either breast. There has been no significant interval change. IMPRESSION: NEGATIVE There is no mammographic evidence of malignancy. A 1 year screening mammogram is recommended. This exam was interpreted at Station ID: [id number]. NOTE: For mammograms, a report in lay terms will be sent to the patient. Approximately 15% of breast malignancies will not be visualized mammographically. In the management of a palpable breast mass, a negative mammogram must not discourage biopsy of a clinically suspicious lesion. Electronically Signed By: Gregorio Pleitez M.D. at/nahomy:11/29/2020 07:47:02 letter sent: Normal Exam ACR BI-RADS Category 1: Negative 3341F
== END ==
PROVIDERS: PCP Family Medicine; Referring Provider Family Medicine; Visit Provider Family Medicine
DX: Z12.31 Encounter for screening mammogram for malignant neoplasm of breast (principal)
CPT/HCPCS: 77063; 77067

== ENCOUNTER → 2021-07-17 10:29 | Outpatient (CLI) | payer MEDICARE, SELFPAY ==
[2021-07-17 11:41] LABS: Add Manual Diff / Slide Review NO; Basophils Absolute Auto 100 /uL (0-100); Eosinophils Absolute Auto 200 /uL (0-450); Eosinophils Percent Auto 3.4 % (2-4); Hematocrit 41.1 % (36-46); Hemoglobin 14.2 g/dL (12.0-16.0); Lymphocytes Absolute Auto 1300 /uL (1100-4500); Lymphocytes Percent Auto 25.6 % (25-40); Mean Corpuscular HGB Conc 34.5 % (30-36); Mean Corpuscular Hemoglobin 31.4 PG (26-34); Mean Corpuscular Volume 91.1 fL (80-100); Monocytes Absolute Auto 400 /uL (0-900); Neutrophils Absolute Auto 3200 /uL (1500-7000); Platelet Count 212 X10^3/uL (150-400); Red Blood Cell Count 4.51 X10^6/uL (4.0-5.2); Red Cell Distribution Width 13.6 % (11.6-14.8); White Blood Cell Count 5.1 X10^3/uL (4.5-11.0)
[2021-07-17 12:16] LABS: Alanine Aminotransferase 21 IU/L (<35); Albumin 4.1 g/dL (3.5-5.0); Albumin Globulin Ratio 1.4 (1.0-2.8); Alkaline Phosphatase 107 U/L (38-126); Aspartate Aminotransferase 35 IU/L (14-36); BUN Creatinine Ratio 18.9 (6-22); Bilirubin Total 0.9 mg/dL (0.2-1.3); Blood Urea Nitrogen 14 mg/dL (7-17); Calcium 9.4 mg/dL (8.4-10.2); Carbon Dioxide 24 mmol/L (22-32); Chloride 106 mmol/L (98-107); Cholesterol 243 mg/dL (140-199); Estimated Glomerular Filt Rate > 60 mL/min (>60); Globulin 2.9 g/dL (1.7-4.1); Glucose 119 mg/dL (80-110); HDL Cholesterol 43 mg/dL (40-60); HEMOLYSIS < 15 (0-50); LDL Cholesterol Calculated 164 mg/dL (<100); Potassium 4.1 mmol/L (3.4-5.1); Sodium 136 mmol/L (137-145); Triglycerides 178 mg/dL (35-150)
[2021-07-17 12:43] LABS: TSH w/ Reflex to FT4 0.57 uIU/mL (0.47-4.68)
== END ==
PROVIDERS: PCP Family Medicine; Referring Provider Family Medicine; Visit Provider Family Medicine
DX: E78.2 Mixed hyperlipidemia (principal); I10 Essential (primary) hypertension; Z63.79 Other stressful life events affecting family and household; E03.9 Hypothyroidism, unspecified
CPT/HCPCS: 36415; 80053; 80061; 84443; 85025

== ENCOUNTER → 2021-11-29 11:02 | Outpatient (CLI) | payer MEDICARE, SELFPAY ==
--- NOTE | 2021-11-29 11:05 | DI.MG.S_ITS ---
BILATERAL DIGITAL SCREENING MAMMOGRAM 3D/2D WITH CAD: 11/29/2021 CLINICAL: Routine screening. Comparison is made to exams dated: 11/28/2020 mammogram, 11/27/2019 mammogram, and 10/29/2019 mammogram - [facility]. There are scattered areas of fibroglandular density in both breasts (category b / 25%-50% glandular tissue). Current study was also evaluated with a Computer Aided Detection (CAD) system. No significant masses, calcifications, or other findings are seen in either breast. There has been no significant interval change. IMPRESSION: NEGATIVE There is no mammographic evidence of malignancy. A 1 year screening mammogram is recommended. Based on the Tyrer Cuzick model (a risk assessment model) the patient's lifetime risk is 4.6% and her 10 year risk is 4.6%. According to the ACR, ACS, and NCCN guidelines, an annual breast MRI exam along with mammogram is recommended if the patient's lifetime risk is 20% or greater. This exam was interpreted at Station ID: [id number]. NOTE: For mammograms, a report in lay terms will be sent to the patient. Approximately 15% of breast malignancies will not be visualized mammographically. In the management of a palpable breast mass, a negative mammogram must not discourage biopsy of a clinically suspicious lesion. Electronically Signed By: Karsten Díaz M.D., jr/nahomy:11/29/2021 15:38:00 letter sent: Normal Exam ACR BI-RADS Category 1: Negative 3341F
== END ==
PROVIDERS: PCP Family Medicine; Referring Provider Family Medicine; Visit Provider Family Medicine
DX: Z12.31 Encounter for screening mammogram for malignant neoplasm of breast (principal)
CPT/HCPCS: 77063; 77067

== ENCOUNTER → 2022-07-18 15:33 | Outpatient (CLI) | payer MEDICARE, SELFPAY ==
--- NOTE | 2022-07-18 | DI.RAD.S_ITS ---
PROCEDURE: XR ANKLE LT MIN 3V INDICATIONS: Presence of left artificial ankle joint TECHNIQUE: 3 views of the ankle were acquired. COMPARISON: [facility], CR, XR ANKLE 3 VIEWS WEIGHT BEARING LEFT, 08/24/2020, 16:33. FINDINGS: Bones: Postoperative changes of total left ankle replacement. There is 2.5 mm lucency around the talar component suggesting lucency. This is a new finding compared to the prior x-ray on 08/24/2020. No fractures or dislocations. Ankle mortise is normally aligned. No suspicious bony lesions. Soft tissues: No tibiotalar joint effusion. Achilles tendon appears normal. IMPRESSION: Lucency around the talar component of the ankle joint replacement is new compared to the prior x-ray, worrisome for loosening. Dictated by: Robbin Quinn M.D. on 07/18/2022 at 16:14 Approved by: Robbin Quinn M.D. on 07/18/2022 at 16:18
== END ==
PROVIDERS: PCP Family Medicine; Referring Provider Physician Assistant Surgical; Visit Provider Physician Assistant Surgical
DX: Z96.662 Presence of left artificial ankle joint (principal)
CPT/HCPCS: 73610

== ENCOUNTER → 2022-09-26 07:59 | Outpatient (CLI) | payer MEDICARE, SELFPAY ==
[2022-09-26 09:05] LABS: Alanine Aminotransferase 18 IU/L (<35); Albumin 3.8 g/dL (3.5-5.0); Albumin Globulin Ratio 1.4 (1.0-2.8); Alkaline Phosphatase 112 U/L (38-126); Aspartate Aminotransferase 25 IU/L (14-36); BUN Creatinine Ratio 21.8 (6-22); Bilirubin Total 0.4 mg/dL (0.2-1.3); Blood Urea Nitrogen 17 mg/dL (7-17); Calcium 9.4 mg/dL (8.4-10.2); Carbon Dioxide 25 mmol/L (22-32); Chloride 101 mmol/L (98-107); Cholesterol 213 mg/dL (140-199); Estimated Glomerular Filt Rate > 60 mL/min (>60); Globulin 2.7 g/dL (1.7-4.1); Glucose 96 mg/dL (80-110); HDL Cholesterol 39 mg/dL (40-60); HEMOLYSIS < 15 (0-50); LDL Cholesterol Calculated 145 mg/dL (<100); Potassium 4.4 mmol/L (3.4-5.1); Sodium 135 mmol/L (137-145); Total Protein 6.5 g/dL (6.3-8.2); Triglycerides 144 mg/dL (35-150)
[2022-09-26 09:22] LABS: Free T3, Triiodothyronine Free 3.75 pg/mL (2.77-5.27); Free T4, Direct Thyroxine 1.46 ng/dL (0.78-2.19)
[2022-09-26 09:36] LABS: Thyroid Stimulating Hormone 1.41 uIU/mL (0.47-4.68)
[2022-09-26 09:44] LABS: Creatinine Urine Random 59.9 mg/dL
[2022-09-26 09:52] LABS: Microalbumin Urine Random < 0.6 mg/dL (0-1.6)
== END ==
PROVIDERS: PCP Family Medicine; Referring Provider Family Medicine; Visit Provider Family Medicine
DX: E03.9 Hypothyroidism, unspecified (principal); E66.9 Obesity, unspecified; E78.2 Mixed hyperlipidemia; I10 Essential (primary) hypertension
CPT/HCPCS: 36415; 80053; 80061; 82043; 82570; 84439; 84443; 84481

== ENCOUNTER → 2022-10-14 13:15 | Outpatient (CLI) | payer MEDICARE, SELFPAY ==
--- NOTE | 2022-10-14 13:17 | DI.RAD.S_ITS ---
PROCEDURE: XR HIP W PEL IF DONE CHANDAN MIN 4V INDICATIONS: bilateral hip pain, left worse than right TECHNIQUE: AP pelvis with lateral view(s) of the bilateral hip(s). COMPARISON: None. FINDINGS: Bones: No fractures or dislocations. Pelvic ring appears intact. No suspicious bony lesions. Lower lumbar spine degenerative changes. Bilateral hip moderate joint space narrowing. No fractures Soft tissues: The visualized bowel gas pattern is normal. No suspicious soft tissue calcifications. IMPRESSION: Osteopenia without fracture. Bilateral hip degenerative joint space narrowing. Degenerative disc disease and lower lumbar spine. Approved by: Otis Gordillo M.D. on 10/14/2022 at 14:38
== END ==
PROVIDERS: PCP Family Medicine; Referring Provider Family Medicine; Visit Provider Family Medicine
DX: M51.36 Other intervertebral disc degeneration, lumbar region (principal); M85.80 Other specified disorders of bone density and structure, unspecified site; M25.551 Pain in right hip; M25.552 Pain in left hip
CPT/HCPCS: 73522

== ENCOUNTER → 2022-11-05 13:36 | Outpatient (CLI) | payer MEDICARE, SELFPAY ==
[2022-11-05 14:59] LABS: COVID-19 CEPHEID 4-PLEX PCR Negative (Negative); Influenza A - CEPHEID Flu A NEGATIVE (NEGATIVE); Influenza B - CEPHEID Flu B NEGATIVE (NEGATIVE); Respiratory Syncytial Virus Negative (Negative)
== END ==
PROVIDERS: PCP Family Medicine; Visit Provider Physician Assistant
DX: R05.9 Cough, unspecified (principal); R09.81 Nasal congestion; Z20.822 Contact with and (suspected) exposure to COVID-19
CPT/HCPCS: 0241U

== ENCOUNTER → 2022-11-30 12:50 | Outpatient (CLI) | payer MEDICARE, SELFPAY ==
--- NOTE | 2022-11-30 | DI.MG.S_ITS ---
BILATERAL DIGITAL SCREENING MAMMOGRAM 3D/2D WITH CAD: 11/30/2022 CLINICAL: Routine screening. Comparison is made to exams dated: 11/28/2020 mammogram, 11/27/2019 mammogram, 10/29/2019 mammogram, and 10/24/2018 mammogram - [facility]. There are scattered areas of fibroglandular density in both breasts (category b / 25%-50% glandular tissue). Current study was also evaluated with a Computer Aided Detection (CAD) system. No significant masses, calcifications, or other findings are seen in either breast. There has been no significant interval change. IMPRESSION: NEGATIVE There is no mammographic evidence of malignancy. A 1 year screening mammogram is recommended. Based on the Tyrer Cuzick model (a risk assessment model) the patient's lifetime risk is 4.2% and her 10 year risk is 0.0%. According to the ACR, ACS, and NCCN guidelines, an annual breast MRI exam along with mammogram is recommended if the patient's lifetime risk is 20% or greater. This exam was interpreted at Station ID: [id number]. NOTE: For mammograms, a report in lay terms will be sent to the patient. Approximately 15% of breast malignancies will not be visualized mammographically. In the management of a palpable breast mass, a negative mammogram must not discourage biopsy of a clinically suspicious lesion. Electronically Signed By: Gregorio jarrell/nahomy:11/30/2022 18:40:28 letter sent: Normal Exam ACR BI-RADS Category 1: Negative 3341F
== END ==
PROVIDERS: PCP Family Medicine; Referring Provider Family Medicine; Visit Provider Family Medicine
DX: Z12.31 Encounter for screening mammogram for malignant neoplasm of breast (principal)
CPT/HCPCS: 77063; 77067

== ENCOUNTER 2023-07-31 18:11 | Emergency (ER) | payer MEDICARE, SELFPAY ==
[2023-07-31 18:15] VITALS: BP 215/105; PULSE 63; RESP 16; TEMP 37.1; O2SAT 100; BMI 30.2
[2023-07-31 19:11] VITALS: BP 200/98
== END 2023-07-31 19:13 | disposition left against medical advice (07) ==
PROVIDERS: Emergency Provider Emergency Medicine; PCP Family Medicine
CPT/HCPCS: 99281

== ENCOUNTER → 2023-09-18 11:27 | Outpatient (CLI) | payer MEDICARE, SELFPAY ==
--- NOTE | 2023-09-18 11:28 | DI.RAD.S_ITS ---
PROCEDURE: XR DEXA AXIAL SKELETON INDICATIONS: inteval screen COMPARISON: 2013, 2017. . FINDINGS: Lumbar Spine: Bone mineral density 1.359 g/cm2, T score 2.5, prior T-score 3.2. Left Hip: Bone mineral density is 0.688 g/cm2, T score -2.1, prior T-score -0.8. Left Femoral Neck: Bone mineral density 0.580 g/cm2, T score -2.3, prior -1.4. Right Hip: Bone mineral density is 0.708 g/cm2, T score -1.9, previous T-score -0.9. Right Femoral Neck: Bone mineral density 0.693 g/cm2, T score -1.4, -1.1. Fracture Risk Calculation (when applicable): 10-year fracture risk of a major osteoporotic fracture 12% and of a hip fracture 2.3%. (T score greater or equal to -1.0 to: NORMAL) (T score from -1.1 to -2.4: OSTEOPENIA) (T score less than or equal to -2.5: OSTEOPOROSIS) IMPRESSION: Osteopenia. Follow-up guidelines as follows: Osteoporosis: Consider a repeat DEXA and Vertebral Fracture Assessment (VFA) exam in 2 years or sooner if medically necessary, to reassess this patient's status. Osteopenia: Consider a repeat DEXA in 2-3 years to reassess this patient's status, or if there is a new clinical indication. Normal: Consider a repeat DEXA in 5 years or sooner, or if there is a new clinical indication. All treatment decisions require clinical judgment and consideration of individual patient factors, including patient preferences, comorbidities, previous drug use, risk factors not captured in the FRAX model (e.g., frailty, falls, vitamin D deficiency, increased bone turnover, interval significant decline in bone density ) and possible under- or over-estimation of fracture risk by FRAX. In addition, the NOF Guide recommends that FDA-approved medical therapies be considered in postmenopausal women and men age >= 50 years with a: * Hip or vertebral (clinical or morphometric) fracture * T-score of <=-2.5 at the spine or hip * Ten-year fracture probability by FRAX of >= 3% for hip fracture or >=20% for major osteoporotic fracture. People with diagnosed cases of osteoporosis or at high risk for fracture should have regular bone mineral density tests. For patients eligible for Medicare, routine testing is allowed once every 2 years. The testing frequency can be increased to one year for patients who have rapidly progressing disease, those who are receiving or discontinuing medical therapy to restore bone mass, or have additional risk factors. Dictated by: Twin García M.D. on 09/19/2023 at 13:13 Approved by: Twin García M.D. on 09/19/2023 at 13:28
== END ==
PROVIDERS: PCP Family Medicine; Referring Provider Family Medicine; Visit Provider Family Medicine
DX: M85.89 Other specified disorders of bone density and structure, multiple sites (principal); N95.1 Menopausal and female climacteric states
CPT/HCPCS: 77080

== ENCOUNTER 2023-10-18 11:56 | Day surgery (SDC) | payer MEDICARE, SELFPAY ==
--- NOTE | 2023-10-18 | PATH_ITS ---
[facility] Accession Number: [id number] No. of containers..01 Tissue . 01 Material submitted: . esophagus, E-G Junction - GE JUNCTION . 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 No dysplasia identified. See comment. . Specimen Comments: The presence of focal goblet cell metaplasia may represent either early Cerrato's metaplasia or intestinal metaplasia of gastric cardia mucosa in the setting of chronic inflammation. Correlation with the endoscopic appearance may be helpful in further evaluation. [facility] 10/23/20231933 Local . 01 Electronically signed: . Severo Salgado MD, Pathologist NPI- [id number] . 01 Gross description: . Received in formalin with two patient identifiers and GE junction, is a single carney soft tissue fragment, 0.4 cm in greatest dimension. Submitted in A1. ([id number]) /MRV 10/23/20231933 Local . 01 Microscopic: . GE JUNCTION: An ABPAS stain was performed, demonstrating the presence of focal goblet cell metaplasia. The control stains appropriately. . 01 Pathologist provided ICD-10: K22.70 . 01 CPT . 497034, [id number] Specimen Comment: A courtesy copy of this report has been sent to [phone] Performed at: [address] [facility] [address], [place], [place] [id number] MD Severo Salgado MD Phone: [phone]
[2023-10-18 12:50] VITALS: BP 152/97; PULSE 73; RESP 16; TEMP 36.2; O2SAT 100
[2023-10-18] MEDS: LACTATED RINGERS 1,000 ML 42 ML IV ×2 (12:59→13:41)
--- NOTE | 2023-10-18 13:29 | SUR.OPER ---
egd scope 043
--- NOTE | 2023-10-18 13:32 | PM.PREOP ---
Pre-operative Note Interval Note History & Physical reviewed/Exam performed by Physician: Yes Changes to H&P: No
--- NOTE | 2023-10-18 13:37 | PM.OP.EGD ---
Operative Date/Time/Diagnoses Date of procedure: 10/18/23 Time of procedure: 13:37 Pre-op diagnosis: Esophageal dysphagia Procedure & Clinicians Study performed: Esophagogastroduodenoscopy Same procedure as scheduled: Yes Indications: Esophageal dysphagia Surgeon: Casimiro Guardado Procedure Notes Procedure in detail: The history and physical was performed/updated and the patient is ASA class is 2. The procedure was discussed in detail with the patient. Potential risks complications including infection, bleeding, missed diagnosis, perforation, need for surgery, and were explained. Their questions were answered and informed consent was obtained. Patient placed in left lateral decubitus position. Time out was performed. Procedural sedation was administered by Anesthesia. A bite block was placed. the scope was inserted into the mouth and advanced through the esophagus and into the stomach. The pylorus was intubated and the duodenum was examined to the 2nd portion. The scope was then withdrawn into the stomach and was retroflexed. The stomach was decompressed and scope was withdrawn slowly through the esophagus. FINDINGS Distal esophageal stricture. Scope passes in the stomach but clearly narrowed. Balloon Dilated to 20 mm under direct visualization. Biopsy of the GE junction performed with forceps. The patient tolerated the procedure well and will be discharged when they meet criteria. Specimen(s): other (GE junction) Impression: Esophageal stricture Post-procedure Plan for aftercare: Pepcid 10 mg daily Disposition: same day surgery
[2023-10-18 13:55] VITALS: BP 100/57; PULSE 71; RESP 12; O2SAT 93
[2023-10-18 14:00] VITALS: BP 106/58; PULSE 69; RESP 12; O2SAT 98
[2023-10-18 14:05] VITALS: BP 114/60; PULSE 69; RESP 12; O2SAT 97
[2023-10-18 14:09] VITALS: BP 123/71; PULSE 65; RESP 20; TEMP 36.5; O2SAT 97
== END 2023-10-18 14:35 | disposition home or self-care (01) ==
PROVIDERS: PCP Family Medicine; Referring Provider Surgery; Visit Provider Surgery
PROC: 0DJ08ZZ Inspection of Upper Intestinal Tract, Via Natural or Artificial Opening Endoscopic (ICD-10-PCS; CPT 43249; principal; 2023-10-18 13:15)
DX: R13.10 Dysphagia, unspecified (principal); K22.2 Esophageal obstruction; K22.70 Barrett's esophagus without dysplasia
CPT/HCPCS: 43249; 43239; J2704

== ENCOUNTER → 2023-12-04 11:28 | Outpatient (CLI) | payer MEDICARE, SELFPAY ==
--- NOTE | 2023-12-04 11:30 | DI.MG.S_ITS ---
BILATERAL DIGITAL SCREENING MAMMOGRAM 3D/2D WITH CAD: 12/04/2023 CLINICAL: Routine screening. Comparison is made to exams dated: 11/30/2022 mammogram, 11/29/2021 mammogram, and 11/28/2020 mammogram - [facility]. There are scattered areas of fibroglandular density (category b / 25%-50% glandular tissue). Current study was also evaluated with a Computer Aided Detection (CAD) system. There is an oval asymmetry in the right breast middle depth lateral region seen on the craniocaudal view only. No other significant masses, calcifications, or other findings are seen in either breast. IMPRESSION: INCOMPLETE: NEED ADDITIONAL IMAGING EVALUATION The oval asymmetry in the right breast is indeterminate. Additional views with possible ultrasound are recommended. Based on the Tyrer Cuzick model (a risk assessment model) the patient's lifetime risk is 3.8% and her 10 year risk is 0.0%. According to the ACR, ACS, and NCCN guidelines, an annual breast MRI exam along with mammogram is recommended if the patient's lifetime risk is 20% or greater. This exam was interpreted at Station ID: [id number]. NOTE: For mammograms, a report in lay terms will be sent to the patient. Approximately 15% of breast malignancies will not be visualized mammographically. In the management of a palpable breast mass, a negative mammogram must not discourage biopsy of a clinically suspicious lesion. Electronically Signed By: Gregorio jarrell/nahomy:12/04/2023 17:10:35 letter sent: Additional Imaging Needed ACR BI-RADS Category 0: Incomplete: Need Additional Imaging Evaluation
== END ==
PROVIDERS: PCP Family Medicine; Referring Provider Family Medicine; Visit Provider Family Medicine
DX: Z12.31 Encounter for screening mammogram for malignant neoplasm of breast (principal)
CPT/HCPCS: 77063; 77067

== ENCOUNTER → 2023-12-20 11:21 | Outpatient (CLI) | payer MEDICARE, SELFPAY ==
--- NOTE | 2023-12-20 11:24 | DI.MG.S_ITS ---
UNILATERAL RIGHT DIGITAL DIAGNOSTIC MAMMOGRAM 3D/2D WITH ADDITIONAL VIEWS: 12/20/2023 CLINICAL: Additional evaluation requested from prior study. Comparison is made to exams dated: 12/04/2023 mammogram, 11/30/2022 mammogram, 11/29/2021 mammogram, and 11/28/2020 mammogram - [facility]. There are scattered areas of fibroglandular density (category b / 25%-50% glandular tissue). There is a possible asymmetry in the right breast middle depth lateral region seen on the craniocaudal view only. This is not seen in additional views. No other significant masses or calcifications are seen in the breast. IMPRESSION: BENIGN There is no mammographic evidence of malignancy. The possible asymmetry in the right breast is consistent with fibroglandular tissue and is benign. A 1 year screening mammogram is recommended. Exam findings were conveyed to the patient. Based on the Tyrer Cuzick model (a risk assessment model) the patient's lifetime risk is 3.8% and her 10 year risk is 0.0%. According to the ACR, ACS, and NCCN guidelines, an annual breast MRI exam along with mammogram is recommended if the patient's lifetime risk is 20% or greater. This exam was interpreted at Station ID: [id number]. NOTE: For mammograms, a report in lay terms will be sent to the patient. Approximately 15% of breast malignancies will not be visualized mammographically. In the management of a palpable breast mass, a negative mammogram must not discourage biopsy of a clinically suspicious lesion. Electronically Signed By: Tommy Veliz M.D. [facility] [place]:12/20/2023 13:01:29 letter sent: Normal Exam ACR BI-RADS Category 2: Benign
[2023-12-20 13:55] LABS: Alanine Aminotransferase 27 IU/L (<35); Albumin 4.2 g/dL (3.5-5.0); Albumin Globulin Ratio 1.4 (1.0-2.8); Alkaline Phosphatase 121 U/L (38-126); Aspartate Aminotransferase 35 IU/L (14-36); BUN Creatinine Ratio 15.9 (6-22); Bilirubin Total 0.7 mg/dL (0.2-1.3); Blood Urea Nitrogen 11 mg/dL (7-17); Calcium 9.7 mg/dL (8.4-10.2); Carbon Dioxide 24 mmol/L (22-32); Chloride 105 mmol/L (98-107); Cholesterol 257 mg/dL (140-199); Estimated Glomerular Filt Rate > 60 mL/min (>60); Globulin 2.9 g/dL (1.7-4.1); Glucose 111 mg/dL (80-110); HDL Cholesterol 40 mg/dL (40-60); HEMOLYSIS < 15 (0-50); LDL Cholesterol Calculated 184 mg/dL (<100); Potassium 4.1 mmol/L (3.4-5.1); Sodium 136 mmol/L (137-145); Total Protein 7.1 g/dL (6.3-8.2); Triglycerides 167 mg/dL (35-150)
[2023-12-20 14:00] LABS: High Sensitivity CRP - Cardiac 6.1 mg/L (1.0-3.0)
[2023-12-20 14:49] LABS: TSH w/ Reflex to FT4 0.05 uIU/mL (0.47-4.68)
[2023-12-20 18:18] LABS: Creatinine Urine Random 77.01 mg/dL; Protein (Total) Urine Random 18 mg/dL (0-12); Protein Creatinine Ratio Urine 0.23 GRAM/24H
== END ==
PROVIDERS: PCP Family Medicine; Referring Provider Family Medicine; Visit Provider Family Medicine
DX: R92.8 Other abnormal and inconclusive findings on diagnostic imaging of breast (principal); E03.9 Hypothyroidism, unspecified; E78.5 Hyperlipidemia, unspecified; I10 Essential (primary) hypertension
CPT/HCPCS: 36415; 77065; 80053; 80061; 82570; 84156; 84439; 84443; 86140; G0279